=== PATIENT | female | born 1995 | race Caucasian/White ===

== ENCOUNTER 2024-11-10 11:55 | Outpatient (CLI) | payer OTHER, SELFPAY ==
--- NOTE | 2024-11-10 12:15 | CRLHL7_ITS ---
For Patients: As a result of the Cures Act, medical imaging exams and procedure reports are released immediately into your electronic medical record. You may view this report before your referring provider. If you have questions, please contact your health care provider. INDICATION: Dating and Viability. TECHNIQUE: Real time samayoa scale imaging of the fetus was performed transvaginal. LMP: 09/08/2024. JESSICA by LMP: 06/15/2025. GA: 9 w, 0 d. BABY A CRL: 2.6 cm. 9 w 3 d. JESSICA: 06/12/2025. FHR: 171 BPM. Gestational sac: 3.5 cm, appears within normal limits. Yolk sac: 3.7 mm, appears within normal limits. BABY B CRL: 2.7 cm. 9 w 3 d. JESSICA: 06/12/2025. FHR: 165 BPM. Gestational sac: 4.2 cm, appears within normal limits. Yolk sac: 3.4 mm, appears within normal limits. Right ovary: Within normal limits. 5.3 x 2.1 x 4.1 cm. CL. Left ovary: Within normal limits. 4.3 x 2 x 2.7 cm. CL. COMMENTS: There is a dichorionic diamniotic twin gestation with a thick intertwin membrane seen. Small subchorionic hemorrhage, low uterine segment measuring 1.8 x 0.6 x 2.5 cm. IMPRESSION: 1. Dichorionic diamniotic twin gestation. Gestation age of Twin A is 9 weeks 3 days with JESSICA of 06/12/2025. Gestation age of Twin B is 9 weeks 3 days with JESSICA of 06/12/2025. 2. Small subchorionic hemorrhage. Beth Zaman M.D. Diagnostic/Breast Radiologist [email or web address] DIMITRY/[email or web address] / DW/Dictated by: Beth Zaman MD @ 11/12/2024 9:40:00 AM (Electronically Signed)
== END 2024-11-10 11:56 | disposition home or self-care (01) ==
LOC: US 11:56
PROVIDERS: PCP Family Medicine; Visit Provider Registered Nurse
DX: Z34.91 Encounter for supervision of normal pregnancy, unspecified, first trimester (principal); O30.041 Twin pregnancy, dichorionic/diamniotic, first trimester; O20.9 Hemorrhage in early pregnancy, unspecified; Z3A.09 9 weeks gestation of pregnancy
CPT/HCPCS: 76801; 76802

== ENCOUNTER 2024-11-10 13:04 | Outpatient (CLI) | payer OTHER, SELFPAY | END 2024-11-10 13:05 | disposition home or self-care (01) | PROVIDERS: PCP Family Medicine; Visit Provider Registered Nurse | DX: Z34.91 Encounter for supervision of normal pregnancy, unspecified, first trimester (principal); Z3A.09 9 weeks gestation of pregnancy | CPT/HCPCS: 83020; 83021; 84443; 85660; 86592; 86703; 86704; 86706; 86762; 86787; 86803; 86850; 86900; 86901; 87086; 87340 ==